=== PATIENT | male | born 1940 | race Caucasian/White ===

== ENCOUNTER → 2018-05-08 | Outpatient (CLI) | payer MEDICARE ==
[~2018-05-08] MED LIST: BUTA-177; CHOL5000 PO; CLON1TAB4 PO; FINA5TAB4 PO; GABA300C10 PO; GLIP10TA13 PO; HYDR-3307 PO; HYDR-3341 PO; LIDOCAINE GEL 2%, 5ML ONE; LISI-170 PO; METF500T17 PO; METF500T27 PO; ROPI1TAB2 PO; TERA10CA3 PO
[2018-05-08 11:06] LABS: BASOPHILS # (AUTO) 0.03 x10^3/uL (0-0.1); BASOPHILS % (AUTO) 0 % (0-1); EOSINOPHILS % (AUTO) 2 % (1-7); LYMPHOCYTES # (AUTO) 1.34 x10^3/uL (1-3.4); LYMPHOCYTES % (AUTO) 20 % (22-44); MD NO; MEAN CORPUSCULAR HEMOGLOBIN 31.3 pg (27.5-34.5); MEAN CORPUSCULAR HGB CONC 34.6 g/dL (33.2-36.2); MEAN CORPUSCULAR VOLUME 90.7 fL (81-97); MEAN PLATELET VOLUME 8.4 fL (7.4-10.4); MONOCYTES # (AUTO) 0.49 x10^3/uL (0.2-0.8); MONOCYTES % (AUTO) 7 % (2-9); NEUTROPHILS # (AUTO) 4.94 x10^3/uL (1.8-6.8); NEUTROPHILS % (AUTO) 72 % (42-75); PLATELET COUNT 241 x10^3/uL (130-400); RED BLOOD COUNT 5.29 x10^6/uL (4.38-5.82); RED CELL DISTRIBUTION WIDTH 13.2 % (9.4-14.8)
[2018-05-08 11:15] LABS: INTERNATIONAL NORMALIZED RATIO 1.03 (0.93-1.1); PROTHROMBIN TIME 10.7 Seconds (9.6-11.5)
[2018-05-08 11:21] LABS: ALANINE AMINOTRANSFERASE 19 U/L (12-78); ALBUMIN 3.7 g/dL (3.4-5.0); ANION GAP 9 mmol/L (5-15); CALCIUM 9.5 mg/dL (8.5-10.1); CHLORIDE 101 mmol/L (98-107)
[2018-05-08 11:23] LABS: ALKALINE PHOSPHATASE 118 U/L (45-117); BILIRUBIN,TOTAL 0.9 mg/dL (0.2-1.0); CREATININE 0.95 mg/dL (0.7-1.3); TOTAL PROTEIN 7.6 g/dL (6.4-8.2)
[2018-05-08 11:28] LABS: MICROSCOPIC AUTO
== END | disposition home or self-care (01) ==
LOC: STAR 09:48
PROVIDERS: ATTEND Urology
DX: Z01.818 Encounter for other preprocedural examination (principal); J43.9 Emphysema, unspecified; N40.1 Benign prostatic hyperplasia with lower urinary tract symptoms; E11.9 Type 2 diabetes mellitus without complications; F17.200 Nicotine dependence, unspecified, uncomplicated
CPT/HCPCS: 36415; 71045; 80053; 81001; 85025; 85610; 85730; 87086; 93005

== ENCOUNTER 2018-05-17 08:03 | Day surgery (SDC) | payer MEDICARE ==
[2018-05-08 10:24] VITALS: BP 157/81
[~2018-05-17] VITALS: Ht 185.4 cm; Wt 71.7 kg
[~2018-05-17 08:03] MED LIST changes: +CLON1TAB11 PO; -CLON1TAB4 PO; -LIDOCAINE GEL 2%, 5ML ONE
[2018-05-17] MEDS ORDERED: LACTATED RINGERS 1,000 ML IV SCH (09:24)
[2018-05-17 09:27] VITALS: BP 157/81
[2018-05-17] MEDS ORDERED: LIDOCAINE-MPF 1%, 2ML INFIL ONE (09:30)
[2018-05-17] MEDS ORDERED: MIDAZOLAM 1 MG/ML, 2ML ONE (11:08)
[2018-05-17] MEDS ORDERED: FENTANYL PF 250 MCG/5ML ONE (11:08)
[2018-05-17] MEDS ORDERED: DEXAMETHASONE 4 MG/ML, 1ML ONE ×2 (11:21)
[2018-05-17] MEDS ORDERED: PROPOFOL 10 MG/ML, 20ML ONE (11:24)
[2018-05-17] MEDS ORDERED: CEFAZOLIN 1,000 MG ONE (11:25)
[2018-05-17] MEDS ORDERED: hydrALAzine 20 MG/ML, 1ML IV PRN (11:30)
[2018-05-17] MEDS ORDERED: LABETALOL 5MG/ML, 20ML IV PRN (11:30)
[2018-05-17] MEDS ORDERED: PROMETHAZINE 25 MG/ML, 1ML IV PRN (11:30)
[2018-05-17] MEDS ORDERED: OXYcodone 5 MG/5 ML ORAL.SOL UDC PO PRN (11:30)
[2018-05-17] MEDS ORDERED: ACETAMINOPHEN 325 MG TABLET PO PRN (11:30)
[2018-05-17] MEDS ORDERED: MEPERIDINE/PF 25MG/0.5ML IVPush PRN (11:30)
[2018-05-17] MEDS ORDERED: HALOPERIDOL 5 MG/ML IV PRN (11:30)
[2018-05-17] MEDS ORDERED: ONDANSETRON 2MG/ML, 2ML ONE ×2 (11:52)
[2018-05-17] MEDS ORDERED: hydrALAzine 20 MG/ML, 1ML ONE (12:15)
[2018-05-17] MEDS: FENTANYL PF 100 MCG/2ML IV PRN ×4 (12:35→13:58)
[2018-05-17] MEDS ORDERED: FENTANYL PF 100 MCG/2ML ONE ×2 (12:36→13:43)
[2018-05-17] MEDS ORDERED: OXYcodone 5 MG/5 ML ORAL.SOL UDC ONE (12:36)
[2018-05-17] MEDS ORDERED: HYDROmorphone 2 MG/ML, 1ML ONE (12:54)
[2018-05-17] MEDS: HYDROmorphone 1 MG/ML, 1ML IV PRN ×4 (12:59→13:24)
[2018-05-17] MEDS ORDERED: LIDOCAINE JELLY 2%, 30GM TP ONE (13:00)
[2018-05-17] MEDS ORDERED: MEPERIDINE/PF 50 MG/ML ONE (13:28)
[2018-05-17] MEDS ORDERED: KETOROLAC 30 MG/1 ML ONE (13:43)
[2018-05-17] MEDS ORDERED: KETOROLAC 30 MG/1 ML IVPush ONE ×2 (14:00)
[2018-05-17] MEDS ORDERED: INSULIN REGULAR 100 UNITS/ML, 3ML VIAL SQ-INSULIN SCH (16:00)
== END 2018-05-17 16:30 | disposition home or self-care (01) ==
LOC: OUT 08:03
PROVIDERS: ATTEND Urology
DX: N40.0 Benign prostatic hyperplasia without lower urinary tract symptoms (principal); F17.210 Nicotine dependence, cigarettes, uncomplicated; E11.9 Type 2 diabetes mellitus without complications; I10 Essential (primary) hypertension; Z98.890 Other specified postprocedural states
CPT/HCPCS: 52601; 82962; 88305; J0360; J0690; J1100; J1170; J1885; J2175; J2250; J2405; J2704; J3010; J7120